=== PATIENT | male | born 1960 | race Hispanic/Latino ===

== ENCOUNTER 2021-03-22 15:13 | Inpatient (IN) | payer MEDICARE ==
[~2021-03-22] VITALS: Ht 165.1 cm; Wt 55.1 kg
[2021-03-22] MEDS ORDERED: SODIUM CHLORIDE 0.9% 1000ML 1,000 ML IV STA (15:33)
[2021-03-22] MEDS ORDERED: NALOXONE HCL INJ 0.4 MG/ML AMP IV PRN (15:45)
[2021-03-22 15:55] LABS: BASOPHILS # (AUTO) 0.1 (0.0-0.1); BASOPHILS % 1.7 % (0.0-1.0); EOSINOPHILS # (AUTO) 0.5 (0.0-0.4); EOSINOPHILS % 8.7 % (0.0-6.0); HEMATOCRIT 35.2 % (38.2-49.6); HEMOGLOBIN 10.3 g/dL (14.0-18.0); LYMPHOCYTES # (AUTO) 1.1 (1.0-3.2); LYMPHOCYTES % 18.8 % (18.0-39.1); MEAN CORPUSCULAR HGB CONC 29.3 g/dL (31-35); MEAN CORPUSCULAR VOLUME 92.1 fL (81-99); MONOCYTES # (AUTO) 0.5 (0.2-0.8); MONOCYTES % 7.7 % (4.4-11.3); NEUTROPHILS # (AUTO) 3.8 (2.1-6.9); NEUTROPHILS % 62.8 % (38.7-80.0); PLATELET COUNT 298 x10e3/uL (140-360); RED BLOOD COUNT 3.82 x10e6/uL (4.3-5.7); RED CELL DISTRIBUTION WIDTH 17.2 % (11.7-14.4)
[2021-03-22 16:07] LABS: ALBUMIN 3.9 g/dL (3.5-5.0); ANION GAP 13.3 mmol/L (8-16); CALCIUM 8.5 mg/dL (8.4-10.2); CREATININE, SERUM 1.06 mg/dL (0.72-1.25); MAGNESIUM 1.9 MG/DL (1.3-2.1); POTASSIUM 4.3 mmol/L (3.5-5.1)
[2021-03-22 16:10] LABS: AMPHETAMINES SCREEN,URINE NEGATIVE (NEGATIVE); BENZODIAZEPINES SCREEN,URINE NEGATIVE (NEGATIVE); PHENCYCLIDINE SCREEN,URINE NEGATIVE (NEGATIVE)
[2021-03-22 16:11] LABS: CLARITY,URINE SL CLOUDY (CLEAR); COLOR,URINE YELLOW (YELLOW); KETONES,URINE NEGATIVE (NEGATIVE); LEUKOCYTE ESTERASE ,URINE LARGE (NEGATIVE); NITRITE,URINE POSITIVE (NEGATIVE); PROTEIN,URINE DIPSTICK 1+ (NEGATIVE); URINE UROBILINOGEN 0.2 mg/dL (0.2 - 1)
[2021-03-22 16:14] LABS: CREATINE KINASE MB 3.5 ng/mL (0-5.0)
[2021-03-22 16:19] LABS: INR 0.97; PROTHROMBIN TIME 13.1 seconds (11.9-14.5)
[2021-03-22 16:20] LABS: PARTIAL THROMBOPLASTIN TIME 35.7 seconds (23.8-35.5)
[2021-03-22 16:22] LABS: BACTERIA,URINE MANY /HPF; WBC,URINE (MAN) >50 /HPF (0-5)
[2021-03-22 17:01] LABS: SALICYLATE < 5.0 mg/dL (0-30)
[2021-03-22] MEDS: PIPERACILLIN/TAZOBACTAM 3.375 GM in SODIUM CHLORIDE 0.9% 50ML 50 ML IV SCH (17:04)
[2021-03-22] MEDS: SODIUM CHLORIDE 0.9% 1000ML 1,000 ML IV SCH (17:42)
[2021-03-22] MEDS ORDERED: ONDANSETRON HCL INJ 2MG/ML 2ML 2 MG/ML VIAL IV PRN (17:45)
[2021-03-22] MEDS ORDERED: DEXTROSE 50% SYRINGE 50 ML IV PRN (17:45)
[2021-03-22] MEDS: INSULIN REGULAR, HUMAN 100 UNIT/1 ML SQ SCH (21:00)
[2021-03-22 23:32] VITALS: BP 104/64
[2021-03-22 23:33] VITALS: BP 104/64
[2021-03-22 23:42] VITALS: BP 104/64
[2021-03-23] VITALS (7 sets, daily range): BP systolic 98–121; BP diastolic 60–71
[2021-03-23] MEDS: SODIUM CHLORIDE 0.9% 1000ML 1,000 ML IV SCH ×3 (01:45→12:58)
[2021-03-23] MEDS: PIPERACILLIN/TAZOBACTAM 3.375 GM in SODIUM CHLORIDE 0.9% 50ML 50 ML IV SCH ×5 (05:25→12:58)
[2021-03-23 05:57] LABS: BASOPHILS # (AUTO) 0.1 (0.0-0.1); EOSINOPHILS # (AUTO) 0.4 (0.0-0.4); EOSINOPHILS % 6.1 % (0.0-6.0); HEMATOCRIT 34.9 % (38.2-49.6); HEMOGLOBIN 10.3 g/dL (14.0-18.0); LYMPHOCYTES # (AUTO) 0.9 (1.0-3.2); LYMPHOCYTES % 12.4 % (18.0-39.1); MEAN CORPUSCULAR HEMOGLOBIN 27.3 pg (28-32); MEAN CORPUSCULAR HGB CONC 29.5 g/dL (31-35); MEAN CORPUSCULAR VOLUME 92.6 fL (81-99); MONOCYTES # (AUTO) 0.4 (0.2-0.8); NEUTROPHILS # (AUTO) 5.1 (2.1-6.9); NEUTROPHILS % 74.4 % (38.7-80.0); PLATELET COUNT 222 x10e3/uL (140-360); RED BLOOD COUNT 3.77 x10e6/uL (4.3-5.7); RED CELL DISTRIBUTION WIDTH 17.1 % (11.7-14.4)
[2021-03-23 06:24] LABS: ALBUMIN/GLOBULIN RATIO 0.9 (0.8-2.0); ANION GAP 10.4 mmol/L (8-16); CALCIUM 7.8 mg/dL (8.4-10.2); CREATININE, SERUM 0.81 mg/dL (0.72-1.25); POTASSIUM 4.4 mmol/L (3.5-5.1)
[2021-03-23 06:52] LABS: CREATINE KINASE MB 2.9 ng/mL (0-5.0)
[2021-03-23] MEDS: INSULIN REGULAR, HUMAN 100 UNIT/1 ML SQ SCH ×2 (07:30→11:30)
== END 2021-03-23 17:18 | disposition left against medical advice (07) | DRG 689 ==
LOC: ER 17:02 → ERHOLD 17:38 → MED/SURG3 22:50
PROVIDERS: ADMIT Family Medicine; ATTEND Family Medicine
DX: N39.0 Urinary tract infection, site not specified (principal); G92 Toxic encephalopathy; I10 Essential (primary) hypertension; E78.00 Pure hypercholesterolemia, unspecified; Z89.619 Acquired absence of unspecified leg above knee; Z85.038 Personal history of other malignant neoplasm of large intestine; Z20.822 Contact with and (suspected) exposure to COVID-19
CPT/HCPCS: 36415; 70450; 71045; 80053; 80307; 80320; 80329; 81001; 82140; 82550; 82553; 82948; 83735; 83880; 84484; 85025; 85610; 85730; 87040; 87086; 87186; 93005; 96360; 96361; 99284; J2310; J2543; J7030; U0002